=== PATIENT | male | born 1945 | race Caucasian/White ===

== ENCOUNTER 2016-11-25 08:14 | Outpatient (CLI) | payer MEDICARE, OTHER | END 2016-11-25 08:15 | disposition home or self-care (01) | DX: E11.65 Type 2 diabetes mellitus with hyperglycemia (principal); Z79.4 Long term (current) use of insulin; E78.4 Other hyperlipidemia ==

== ENCOUNTER 2017-02-22 07:26 | Outpatient (CLI) | payer MEDICARE, OTHER | END 2017-02-22 07:27 | disposition short-term general hospital (02) | LOC: EMS 07:26 | PROVIDERS: ATTEND Surgery | DX: R07.9 Chest pain, unspecified (principal) | CPT/HCPCS: A0170; A0425; A0427 ==

== ENCOUNTER 2017-05-26 13:36 | Outpatient (CLI) | payer MEDICARE, OTHER ==
[2017-05-26 19:03] LABS: HEMOGLOBIN A1C 0.86 g/dL
== END 2017-05-26 13:37 | disposition home or self-care (01) ==
LOC: LAB.F 13:36
PROVIDERS: ATTEND Internal Medicine Endocrinology, Diabetes & Metabolism
DX: E11.65 Type 2 diabetes mellitus with hyperglycemia (principal); Z79.4 Long term (current) use of insulin
CPT/HCPCS: 36415; 83036

== ENCOUNTER 2017-08-25 08:00 | Outpatient (CLI) | payer MEDICARE, OTHER ==
[2017-08-25 18:12] LABS: HB2 TOTAL 15.5 g/dL; HEMOGLOBIN A1C 0.84 g/dL; HEMOGLOBIN A1C % 7.1 % (4.6-6.2)
== END 2017-08-25 08:01 | disposition home or self-care (01) ==
LOC: LAB.F 08:00
PROVIDERS: ATTEND Internal Medicine Endocrinology, Diabetes & Metabolism
DX: E11.65 Type 2 diabetes mellitus with hyperglycemia (principal); Z79.4 Long term (current) use of insulin
CPT/HCPCS: 36415; 83036

== ENCOUNTER 2017-08-31 16:57 | Outpatient (CLI) | payer MEDICARE, OTHER | END 2017-08-31 16:58 | disposition EMS.NT | LOC: EMS 16:57 | PROVIDERS: ATTEND Surgery | DX: R40.4 Transient alteration of awareness (principal) ==